=== PATIENT | male | born 1990 | race Two or more races ===

== ENCOUNTER 2025-05-02 10:04 | Emergency (ER) | payer MEDICAID, SELFPAY ==
[2025-05-02 10:04] VITALS: BMI 23.6
--- NOTE | 2025-05-02 10:25 | PC.NURSE ---
no answer in lobby when called to see provider
--- NOTE | 2025-05-02 10:35 | PC.NURSE ---
no answer in lobby when called to see provider
--- NOTE | 2025-05-02 10:57 | PC.NURSE ---
no answer in lobby when called to see provider
== END 2025-05-04 00:08 | disposition left against medical advice (07) ==
PROVIDERS: Emergency Provider Emergency Medicine
DX: Z53.21 Procedure and treatment not carried out due to patient leaving prior to being seen by health care provider (principal)
CPT/HCPCS: 99281